=== PATIENT | female | born 1970 ===

== ENCOUNTER 2024-01-19 03:28 | Outpatient (CLI) | payer BC | END 2024-01-19 03:29 | disposition critical access hospital (66) | LOC: EMS 03:28 | DX: R51.9 Headache, unspecified (principal); H53.149 Visual discomfort, unspecified; R07.89 Other chest pain; R11.0 Nausea | CPT/HCPCS: A0425; A0427 ==

== ENCOUNTER 2024-01-19 03:51 | Emergency (ER) | payer BC ==
[2024-01-19 04:09] VITALS: BP 170/99
--- NOTE | 2024-01-19 04:09 | ED Physician Documentation ---
PD HPI HEADACHE - Stated complaint Stated Complaint: MIGRAINE, NAUSEA - Chief complaint Chief Complaint: Neuro - History obtained from History obtained from: Patient, EMS - History of Present Illness Timing - onset: Today Timing - onset during: Light activity Timing - duration: Hours Timing - details: Gradual onset, Still present Worst headache ever?: No: Worst headache ever? (feeling like other migraines but is not responsive to Naratriptan. She states similar to migraines and home meds work majority of the time but regular enough ED visits for incalcitrant ones.) Location: Front, Right Quality: Throbbing, Aching Associated symptoms: Nausea. No: Fever, Stiff neck Improved by: No: Meds Worsened by: Light, Noise Similar symptoms before: Diagnosis (migraines and has been trialed on many meds for proppylaxis and even has had 2 attempts at Botox without improvement in headaches.) Review of Systems Constitutional: denies: Fever, Chills Eyes: reports: Photophobia. denies: Loss of vision Neurologic: denies: Focal weakness, Numbness PD PAST MEDICAL HISTORY - Past Medical History Past Medical History: Yes Neuro: Headaches, Migraines - Past Surgical History Past Surgical History: No - Present Medications Home Medications: Ambulatory Orders Medication Instructions Recorded Confirmed HYDROmorphone [Dilaudid] 2 mg PO Q8H PRN #10 tablet 01/19/24 Ketorolac Inj (30Mg) [Toradol Inj 01/19/24 (30Mg)] Ketorolac Inj (30Mg) [Toradol Inj 30 mg IM Q8H PRN #10 each 01/19/24 (30Mg)] Ondansetron Odt [Zofran] 4 mg TL Q6H PRN #20 tablet 01/19/24 SUMAtriptan [Imitrex] 01/19/24 Syringe and Needle,Insulin,1Ml 1 each MC Q8H PRN #10 ea 01/19/24 [Insulin Syringe] - Allergies Allergies/Adverse Reactions: Allergies Allergy/AdvReac Type Severity Reaction Status Date / Time azithromycin [From Zithromax] Allergy Hives Verified 01/19/24 04:06 cyclobenzaprine Allergy Hives Verified 01/19/24 04:06 metoclopramide Allergy Hives Verified 01/19/24 04:06 - Social History Does the pt smoke?: No Smoking Status: Never smoker Does the pt drink ETOH?: No Does the pt have substance abuse?: No - Immunizations Immunizations are current?: Yes - POLST Patient has POLST: No PD ED PE NORMAL - Vitals Vital signs reviewed: Yes - General General: Alert and oriented X 3, Well developed/nourished, Other (appears in pain and holding right side of head. Preferring dark room. ) - Neck Neck: Supple, no meningeal sign, No adenopathy - Cardiac Cardiac: RRR, No murmur - Respiratory Respiratory: Clear bilaterally - Neuro Neuro: Alert and oriented X 3, knurling machine tender 2-12 intact, No motor deficit, No sensory deficit Eye Opening: Spontaneous Motor: Obeys Commands Verbal: Oriented GCS Score: 15 Results - Vitals Vitals: Oxygen O2 Source Room air PD Medical Decision Making - ED course Complexity details: re-evaluated patient (improved with meds and feeling comfortable going home. ), considered differential (history of migraines without red flags. Can give Meds in ED to improve. Gave fluids, toradol, Zofran by EMS, and we gave Dilaudid, inapsine and decadron in ER. 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 Also ondansetron/Zofran for nausea. (I wrote for the syringes for the Toradol as well). I not sure the reason but I do not have naratriptan (Amerge) in my database for transmitting it electronically. I do see that you have received prescriptions for it from your primary care. I hand wrote it but you will have to bring it to the pharmacy instead. The others I did transmit electronically. I also added Hytrin hydromorphone tablet to use half to 1 every 8 hours if needed for the migraines if not relieved by the usual naratriptan and Zofran. You were given a dose of dexamethasone here in the ER which is a steroid medicine in hopes of reducing recurrence of the headache/rebound over the next few days. I transmitted your prescriptions to [facility] in [place]. I am prescribing a short course of narcotic pain medication for you. These are potentially dangerous and addictive medications that should be used carefully. These medications may constipate you. Take an [id number]-[id number] stool softener such as docusate twice daily with plenty of water while taking these medications. If you go 24 hours without a bowel movement, take [id number] MiraLAX, per package instructions. Do not drink or drive while taking these medications. If you received narcotic or sedating medications while in the emergency department do not drive for 24 hours. Store this medication in a safe, secure place and out of reach of children. It is a violation of federal law to give or sell this medication to another person or to use in a manner other than prescribed. The ED will not refill narcotic prescriptions, including prescriptions lost or stolen. You can dispose of unwanted medications at the [facility]'s office or at several pharmacies such as [facility]. Forms: PCP List Discharge Date/Time: 01/19/24 06:24
[2024-01-19] MEDS: DEXAMETHASONE 10 MG/ML VIAL IVP STA (04:58)
[2024-01-19] MEDS: SODIUM CHLORIDE 0.9% 1,000 ML IV STA (04:58)
[2024-01-19] MEDS: DROPERIDOL 5 MG/2 ML VIAL IVP STA (04:58)
[2024-01-19] MEDS: HYDROmorphone 1 MG/ML CARPUJECT IVP STA (04:58)
--- NOTE | 2024-01-19 08:28 | XRAY Report ---
PROCEDURE: Chest 1V INDICATIONS: chest pain TECHNIQUE: One view of the chest was acquired. COMPARISON: None. FINDINGS: Surgical changes and devices: None. Lungs and pleura: No pleural effusions or pneumothorax. Mild atelectasis. Low lung volumes with mil d central vascular crowding. Lungs are otherwise clear. Mediastinum: Mediastinal contours appear normal. Heart size is normal. Bones and chest wall: No suspicious bony lesions. Overlying soft tissues appear unremarkable. IMPRESSION: No acute cardiopulmonary process. Findings are concordant with preliminary interpretation provided by [facility]. Reviewed by: Luis Eduardo Herzog MD on 01/19/2024 8:27 AM PDT Approved by: Luis Eduardo Herzog MD on 01/19/2024 8:27 AM PDT Station ID: [id number]
== END 2024-01-19 06:24 | disposition home or self-care (01) ==
LOC: ED 03:51
DX: G43.909 Migraine, unspecified, not intractable, without status migrainosus (principal); M94.0 Chondrocostal junction syndrome [Tietze]; Z79.899 Other long term (current) drug therapy
CPT/HCPCS: 71045; 93005; 96374; 99283; 99284; J1170; 80053; 83690; 84484; 85025; 85651; 86140